=== PATIENT | female | born 1975 | race Asian ===

== ENCOUNTER → 2016-11-20 | Outpatient (CLI) | payer OTHER ==
[~2016-11-20] VITALS: Ht 152.4 cm; Wt 71.2 kg
[~2016-11-20] MED LIST: LIDOCAINE 1% / SOD BICARB 8.4% 20 ML VIAL. IJ ONE; LIDOCAINE 2%/EPI 1:100,000 20 ML VIAL. IJ ONE
[2016-11-20 08:23] VITALS: BP 124/57
--- NOTE | 2016-11-20 10:52 | RAD ---
Indication right breast mass. Anticipated biopsy. The patient had outside imaging including a diagnostic mammogram and breast sonogram. As a result of those examinations a stereotactic mammotome biopsy was recommended. Prior to performing the stereotactic biopsy repeat imaging including CC MLO and ML views of the right breast were obtained. A slightly bilobed density, compatible with that seen on the outside imaging was reproduced. This was only suggested on the CC image and not reproduced on the ML or MLO views. The patient was placed on the stereotactic biopsy table and images were obtained however a definite mass corresponding to that seen on the mammographic imaging was not seen. Targeted ultrasound was then performed but no abnormality warranting biopsy could be seen. The patient does not speak [place]. The patient's daughter indicated, over the phone, that the patient was not able to feel a palpable abnormality in the right breast. A phone heating unit mechanic was utilized. There was explained to the patient that no discrete mass was seen that could warrant a mammotome biopsy. MRI examination of the breast was recommended to the patient. This recommendation was communicated by the heating unit mechanic over the phone. IMPRESSION: No definable mass seen warranting mammotome guided biopsy. MRI examination of the breast recommended.
== END | disposition home or self-care (01) ==
LOC: MAMMO 08:07
PROVIDERS: ATTEND Surgery
DX: R92.8 Other abnormal and inconclusive findings on diagnostic imaging of breast (principal); N63 Unspecified lump in breast
CPT/HCPCS: 76641; G0206; 77065

== ENCOUNTER → 2017-04-01 | Outpatient (CLI) | payer OTHER ==
[2016-11-20 08:23] VITALS: BP 124/57
--- NOTE | 2017-04-01 11:50 | RAD ---
DATE: 04/01/2017 EXAM: DIGITAL DIAGNOSTIC RT, BREAST RIGHT HISTORY: Diagnostic mammogram being performed due to prior concern for a mass in the right breast. Patient was previously scheduled for a stereotactic biopsy, however the breast mass was unable to be localized and not identified by ultrasound. Procedure was canceled at that time. Patient returns for follow-up imaging. COMPARISON: 11/20/2016, 10/10/2016, 06/17/2015 This study was interpreted with the benefit of Computerized Aided Detection (CAD). The breast parenchyma is heterogeneously dense, which could reduce sensitivity of mammography. Breast parenchyma level C. FINDINGS: CC, MLO views of the right breast as well as additional views including spot CC views of the right breast were performed. Right breast ultrasound was performed. No suspicious masses, likely calcifications or areas of architectural distortion are identified. Spot CC views of the right breast were performed in the area of previously suspected abnormality, without an identifiable mass. Findings may relate to fibroglandular tissue. Correlated sonographic evaluation of the right breast, 4 cm and 6 cm from the nipple from the 2:00 to 12:00 position was performed. No suspicious mass or architectural distortion is noted. IMPRESSION: 1. Normal right mammogram. Patient to return to normal screening mammography. BI-RADS CATEGORY: 1 NEGATIVE RECOMMENDED FOLLOW-UP: 12M 12 MONTH FOLLOW-UP PQRS compliance statement: Patient information was entered into a reminder system with a target due date 10/10/2017 for the next mammogram. Mammography is a sensitive method for finding small breast cancers, but it does not detect them all and is not a substitute for careful clinical examination. A negative mammogram does not negate a clinically suspicious finding and should not result in delay in biopsying a clinically suspicious abnormality. "Our facility is accredited by the [employer] Mammography Program."
== END | disposition home or self-care (01) ==
LOC: MAMMO 10:20
PROVIDERS: ATTEND Family Medicine
DX: R92.8 Other abnormal and inconclusive findings on diagnostic imaging of breast (principal)
CPT/HCPCS: 76641; G0206; 77065